=== PATIENT | female | born 1950 | race Two or more races ===

== ENCOUNTER → 2017-12-13 | Emergency (ER) | payer OTHER ==
[~2017-12-13] VITALS: Ht 157.5 cm; Wt 67.6 kg
[~2017-12-13] MED LIST: SYNTHROID88 MCG PO
== END | disposition home or self-care (01) ==
LOC: ER 09:17
DX: M54.2 Cervicalgia (principal); M62.838 Other muscle spasm

== ENCOUNTER 2019-02-09 10:35 | Outpatient (CLI) | payer OTHER | END 2019-02-09 10:53 | disposition home or self-care (01) | LOC: MAMO-SONO 10:35 | DX: Z12.31 Encounter for screening mammogram for malignant neoplasm of breast (principal); Z87.898 Personal history of other specified conditions; N63.10 Unspecified lump in the right breast, unspecified quadrant; N63.20 Unspecified lump in the left breast, unspecified quadrant ==

== ENCOUNTER 2020-03-13 09:24 | Emergency (ER) | payer OTHER ==
[~2020-03-13] VITALS: Ht 157.5 cm; Wt 68.9 kg
[2020-03-13] MEDS ORDERED: NORFLEX100MG PO (14:25)
[2020-03-13] MEDS ORDERED: KETO10TA2 PO (14:25)
== END 2020-03-13 14:55 | disposition home or self-care (01) ==
LOC: ER 09:24
DX: M54.2 Cervicalgia (principal); H92.02 Otalgia, left ear; M25.512 Pain in left shoulder

== ENCOUNTER 2021-07-29 07:18 | Emergency (ER) | payer OTHER ==
[~2021-07-29] VITALS: Ht 157.5 cm; Wt 67.6 kg
[~2021-07-29 07:18] MED LIST changes: +KETO10TA2 PO; +NORFLEX100MG PO
[2021-07-29] MEDS ORDERED: MEDI-MECLIZINE25 MG PO (14:07)
[2021-07-29] MEDS ORDERED: METOCLOPRAMIDE10 MG PO (14:07)
== END 2021-07-29 14:55 | disposition home or self-care (01) ==
LOC: ER 07:18
DX: R42 Dizziness and giddiness (principal); G44.89 Other headache syndrome; R06.02 Shortness of breath; Z03.818 Encounter for observation for suspected exposure to other biological agents ruled out

== ENCOUNTER 2023-04-17 08:06 | Outpatient (CLI) | payer OTHER ==
[~2023-04-17 08:06] MED LIST changes: +MEDI-MECLIZINE25 MG PO; +METOCLOPRAMIDE10 MG PO
== END 2023-04-17 08:16 | disposition home or self-care (01) ==
LOC: SONOGRAMA 08:06
DX: C73 Malignant neoplasm of thyroid gland (principal); I11.0 Hypertensive heart disease with heart failure; R31.29 Other microscopic hematuria

== ENCOUNTER 2025-06-06 07:46 | Outpatient (CLI) | payer OTHER | END 2025-06-06 07:49 | disposition home or self-care (01) | LOC: TOM 07:46 | PROVIDERS: ATTEND Psychiatry & Neurology Neurology | DX: D32.9 Benign neoplasm of meninges, unspecified (principal) ==